=== PATIENT | male | born 1995 | race Caucasian/White ===

== ENCOUNTER 2016-09-23 21:33 | Emergency (ER) | payer OTHER ==
[~2016-09-23] VITALS: Ht 167.6 cm; Wt 56.7 kg
[2016-09-23 21:48] VITALS: BP 141/57
--- NOTE | 2016-09-23 22:02 | NUR ---
PT TAKEN TO XRAY FROM THE LOBBY
--- NOTE | 2016-09-23 22:08 | NUR ---
PT RETURN FROM XRAY TO THE LOBBY
--- NOTE | 2016-09-23 23:04 | NUR ---
PT TAKEN TO OF
--- NOTE | 2016-09-23 23:26 | NUR ---
Dr. Ann evaluating patient
[2016-09-23 23:47] VITALS: BP 132/55
--- NOTE | 2016-09-23 23:47 | NUR ---
Patient discharged with v/s stable. Written and verbal after care instructions given and explained. Patient alert, oriented and verbalized understanding of instructions. Ambulatory with by parent. All questions addressed prior to discharge. ID band removed. Patient advised to follow up with PMD. Rx of MOTRIN 800MG given. Patient educated on indication of medication including possible reaction and side effects. Opportunity to ask questions provided and answered.
== END 2016-09-23 23:47 | disposition home or self-care (01) ==
LOC: MED 21:33
DX: S93.402A Sprain of unspecified ligament of left ankle, initial encounter (principal); R03.0 Elevated blood-pressure reading, without diagnosis of hypertension; X58.XXXA Exposure to other specified factors, initial encounter; Y93.67 Activity, basketball; Y92.89 Other specified places as the place of occurrence of the external cause; Y99.8 Other external cause status
CPT/HCPCS: 73610; 99284